=== PATIENT | female | born 1960 | race Caucasian/White ===

== ENCOUNTER → 2016-04-14 | Outpatient (CLI) | payer OTHER ==
[~2016-04-14] MED LIST: AMBIEN CR12.5 MG PO; ATIVAN1 MG PO; AUGMENTIN875 MG PO; ESTRADIOL0.5 MG PO; EYE DROP TEARS15 ML BOTH EYES; INDERAL20 MG PO; LEVAQUIN500 MG PO; LIPITOR40 MG PO; NEXIUM40 MG PO; NORCO 5/3251 TABLET PO; OXYCODONE HCL5 MG PO; PLAQUENIL200 MG PO; PREDNISONE10 MG PO; PREDNISONE20 MG PO; PROAIR HFA8.5 GM IH; PROZAC20 MG PO; VYTORIN 10/41 TABLET PO
== END | disposition home or self-care (01) ==
LOC: NUC 07:05
DX: R11.2 Nausea with vomiting, unspecified (principal)
CPT/HCPCS: 78264; A9541

== ENCOUNTER 2016-06-08 08:47 | Day surgery (SDC) | payer OTHER ==
[~2016-06-08] VITALS: Ht 165.1 cm; Wt 72.0 kg
[~2016-06-08 08:47] MED LIST changes: +KLONOPIN0.5 M1 PO
[2016-06-08] MEDS ORDERED: TYLENOL EXTRA500 MG PO (09:07)
[2016-06-08 09:08] VITALS: BP 130/75
[2016-06-08] MEDS ORDERED: COLACE100 MG PO (11:19)
[2016-06-08] MEDS ORDERED: OXAYDO5 MG PO (11:19)
[2016-06-08 14:45] VITALS: BP 129/73
[2016-06-08 15:45] VITALS: BP 140/78
[2016-06-08 17:15] VITALS: BP 132/71
== END 2016-06-08 17:25 | disposition home or self-care (01) ==
LOC: SDC 08:47
PROC: 0FT44ZZ Resection of Gallbladder, Percutaneous Endoscopic Approach (ICD-10-PCS; principal; 2016-06-08)
DX: K81.1 Chronic cholecystitis (principal); K21.9 Gastro-esophageal reflux disease without esophagitis; E78.5 Hyperlipidemia, unspecified; J84.9 Interstitial pulmonary disease, unspecified; M32.9 Systemic lupus erythematosus, unspecified; Z79.899 Other long term (current) drug therapy; Z80.7 Family history of other malignant neoplasms of lymphoid, hematopoietic and related tissues; Z82.69 Family history of other diseases of the musculoskeletal system and connective tissue
CPT/HCPCS: 88304; C1769; J0131; J1100; J1170; J2060; J2250; J2405; J2550; J2710; J3010; J7120